=== PATIENT | female | born 1955 | race Caucasian/White ===

== ENCOUNTER 2021-02-10 15:36 | Emergency (ER) | payer MEDICARE, OTHER ==
[~2021-02-10 15:36] MED LIST: CATAPRES 0.1MG0.1 MG PO; COREG 3.125M3.125 MG PO; NORVASC 5 MG TAB5 MG PO
[2021-02-10] MEDS ORDERED: MOBIC15 MG PO (17:34)
== END 2021-02-10 17:44 | disposition home or self-care (01) ==
LOC: ER1 15:36
DX: S76.012A Strain of muscle, fascia and tendon of left hip, initial encounter (principal); I10 Essential (primary) hypertension; E78.00 Pure hypercholesterolemia, unspecified; Z88.5 Allergy status to narcotic agent; Z88.0 Allergy status to penicillin; Z85.828 Personal history of other malignant neoplasm of skin; X50.0XXA Overexertion from strenuous movement or load, initial encounter; Y92.009 Unspecified place in unspecified non-institutional (private) residence as the place of occurrence of the external cause
CPT/HCPCS: 73502; 99283

== ENCOUNTER 2021-02-28 15:01 | Inpatient (IN) | payer MEDICARE, OTHER ==
[~2021-02-28] VITALS: Ht 157.5 cm; Wt 109.8 kg
[~2021-02-28 15:01] MED LIST changes: +MOBIC15 MG PO
[2021-02-28 15:54] LABS: HEMOGLOBIN 13.1 gm/dl (12.3-15.3); RED BLOOD COUNT 4.19 M/UL (4.00-5.10); WHITE BLOOD COUNT 10.1 K/UL (4.5-11.0)
[2021-02-28 16:39] LABS: BUN/CREATININE RATIO 21 (0-10)
[2021-02-28] MEDS ORDERED: FLONASE ALLER15.8 ML (21:24)
[2021-02-28] MEDS ORDERED: VITAMIN D21250 MCG PO (21:25)
[2021-02-28] MEDS ORDERED: MONTELUKAST SOD10 MG PO (21:26)
[2021-02-28] MEDS ORDERED: CRESTOR20 MG PO (21:26)
[2021-02-28] MEDS ORDERED: CLARITIN10 M2 PO (21:27)
[2021-02-28] MEDS ORDERED: ASPIRIN81 MG PO (21:27)
[2021-02-28] MEDS ORDERED: PRESERVISION A1 EAC2 PO (21:29)
[2021-02-28] MEDS ORDERED: TYLENOL325 MG PO (21:30)
[2021-03-01 02:34] LABS: HEMOGLOBIN 11.8 gm/dl (12.3-15.3); RED BLOOD COUNT 3.84 M/UL (4.00-5.10); WHITE BLOOD COUNT 8.9 K/UL (4.5-11.0)
[2021-03-01 03:06] LABS: BUN/CREATININE RATIO 18 (0-10)
[2021-03-02 06:06] LABS: BUN/CREATININE RATIO 22 (0-10)
[2021-03-03 05:36] LABS: HEMOGLOBIN 11.6 gm/dl (12.3-15.3); RED BLOOD COUNT 3.83 M/UL (4.00-5.10); WHITE BLOOD COUNT 8.1 K/UL (4.5-11.0)
[2021-03-03 05:51] LABS: BUN/CREATININE RATIO 19 (0-10)
--- NOTE | 2021-03-03 12:34 | NUR ---
PATIENTS ROOM AIR SATURATION IS 85%.
[2021-03-04 05:05] LABS: BUN/CREATININE RATIO 19 (0-10)
[2021-03-04 06:43] LABS: HEMOGLOBIN 11.7 gm/dl (12.3-15.3); RED BLOOD COUNT 3.93 M/UL (4.00-5.10); WHITE BLOOD COUNT 8.4 K/UL (4.5-11.0)
[2021-03-04] MEDS ORDERED: IPRAT-ALBUT 0.5-3 ML NEB (08:43)
[2021-03-04] MEDS ORDERED: LASIX40 MG PO (08:45)
== END 2021-03-04 15:21 | disposition home or self-care (01) | DRG 314 ==
LOC: ER1 15:01 → PROG CARE 17:13 → CDU 17:13 → PROG CARE 21:35
PROVIDERS: Emergency Medicine; ADMIT Internal Medicine
PROC: 5A0945A Assistance with Respiratory Ventilation, 24-96 Consecutive Hours, High Flow/Velocity Cannula (ICD-10-PCS; 2021-02-28)
PROC: B24BZZZ Ultrasonography of Heart with Aorta (ICD-10-PCS; principal; 2021-03-03)
DX: I27.20 Pulmonary hypertension, unspecified (principal); J96.21 Acute and chronic respiratory failure with hypoxia; Z68.41 Body mass index [BMI] 40.0-44.9, adult; I11.0 Hypertensive heart disease with heart failure; E78.5 Hyperlipidemia, unspecified; E66.01 Morbid (severe) obesity due to excess calories; D69.6 Thrombocytopenia, unspecified; J44.9 Chronic obstructive pulmonary disease, unspecified; Z96.612 Presence of left artificial shoulder joint; E83.39 Other disorders of phosphorus metabolism; Z20.822 Contact with and (suspected) exposure to COVID-19; I50.9 Heart failure, unspecified; D64.9 Anemia, unspecified; I07.1 Rheumatic tricuspid insufficiency; Z88.0 Allergy status to penicillin; Z88.1 Allergy status to other antibiotic agents; Z79.82 Long term (current) use of aspirin; Z79.899 Other long term (current) drug therapy; Z82.49 Family history of ischemic heart disease and other diseases of the circulatory system; Z83.6 Family history of other diseases of the respiratory system; Z87.891 Personal history of nicotine dependence; Z81.8 Family history of other mental and behavioral disorders
CPT/HCPCS: ECHO; 0240U; 36415; 36600; 71045; 80048; 80053; 80202; 81001; 82550; 82553; 82803; 83605; 83690; 83735; 83880; 84484; 85025; 85379; 85610; 85730; 87040; 93005; 93306; 94640; 94664; 94760; 96374; 97161; 97166; 99285; J1650; J3370; J7070; Q9967

== ENCOUNTER → 2021-03-12 | Outpatient (CLI) | payer MEDICARE, OTHER ==
[~2021-03-12] MED LIST changes: +ASPIRIN81 MG PO; +CLARITIN10 M2 PO; +CRESTOR20 MG PO; +FLONASE ALLER15.8 ML; +IPRAT-ALBUT 0.5-3 ML NEB; +LASIX40 MG PO; +MONTELUKAST SOD10 MG PO; +PRESERVISION A1 EAC2 PO; +TYLENOL325 MG PO; +VITAMIN D21250 MCG PO
[2021-03-12 10:51] LABS: HEMOGLOBIN 12.6 gm/dl (12.3-15.3); RED BLOOD COUNT 4.11 M/UL (4.00-5.10); WHITE BLOOD COUNT 6.3 K/UL (4.5-11.0)
[2021-03-12 11:05] LABS: BUN/CREATININE RATIO 19 (0-10)
[2021-03-13 08:14] LABS: VITAMIN D, 25-HYDROXY 50.1 ng/mL (30.0-100.0)
== END ==
LOC: LAB 09:55
PROVIDERS: Family Medicine
DX: E78.5 Hyperlipidemia, unspecified (principal); I10 Essential (primary) hypertension; E55.9 Vitamin D deficiency, unspecified
CPT/HCPCS: 36415; 71046; 80053; 80061; 84439; 84443; 84481; 85027

== ENCOUNTER 2021-06-26 15:26 | Inpatient (IN) | payer MEDICARE, OTHER ==
[~2021-06-26] VITALS: Ht 157.5 cm; Wt 107.7 kg
[2021-06-26 16:09] LABS: HEMOGLOBIN 13.7 gm/dl (12.3-15.3); RED BLOOD COUNT 4.6 M/UL (4.00-5.10); WHITE BLOOD COUNT 7.8 K/UL (4.5-11.0)
[2021-06-26 16:32] LABS: BUN/CREATININE RATIO 18 (0-10)
[2021-06-26] MEDS ORDERED: LASIX20 MG PO (22:38)
[2021-06-26] MEDS ORDERED: CAL-CITRATE PL1 EACH PO (22:39)
[2021-06-26] MEDS ORDERED: PRESERVISION A1 EAC1 PO (22:40)
[2021-06-27 02:55] LABS: HEMOGLOBIN 12.7 gm/dl (12.3-15.3); RED BLOOD COUNT 4.34 M/UL (4.00-5.10); WHITE BLOOD COUNT 6.9 K/UL (4.5-11.0)
[2021-06-27 03:10] LABS: BUN/CREATININE RATIO 16 (0-10)
[2021-06-28 08:15] LABS: BUN/CREATININE RATIO 11 (0-10)
[2021-06-29 07:36] LABS: BUN/CREATININE RATIO 12 (0-10)
[2021-06-30 10:18] LABS: BUN/CREATININE RATIO 19 (0-10)
[2021-07-01] MEDS ORDERED: IPRAT-ALBUT 0.5-3 ML NEB (11:08)
[2021-07-01] MEDS ORDERED: NEBULIZER UNIT INH (11:08)
--- NOTE | 2021-07-01 11:33 | NUR ---
ROOM AIR O2 SAT 78%
== END 2021-07-01 14:32 | disposition home or self-care (01) | DRG 291 ==
LOC: ER1 15:26 → PROG CARE 17:36 → CDU 17:36 → PROG CARE 22:24
PROVIDERS: Physician Assistant; ADMIT Internal Medicine Infectious Disease
PROC: B24BZZ4 Ultrasonography of Heart with Aorta, Transesophageal (ICD-10-PCS; principal; 2021-06-26)
PROC: 5A09557 Assistance with Respiratory Ventilation, Greater than 96 Consecutive Hours, Continuous Positive Airway Pressure (ICD-10-PCS; 2021-06-27)
DX: I11.0 Hypertensive heart disease with heart failure (principal); J96.21 Acute and chronic respiratory failure with hypoxia; Z20.822 Contact with and (suspected) exposure to COVID-19; J96.22 Acute and chronic respiratory failure with hypercapnia; I50.33 Acute on chronic diastolic (congestive) heart failure; E66.2 Morbid (severe) obesity with alveolar hypoventilation; Z68.41 Body mass index [BMI] 40.0-44.9, adult; I27.20 Pulmonary hypertension, unspecified; E78.5 Hyperlipidemia, unspecified; F17.210 Nicotine dependence, cigarettes, uncomplicated; D75.89 Other specified diseases of blood and blood-forming organs; G47.33 Obstructive sleep apnea (adult) (pediatric); J30.2 Other seasonal allergic rhinitis; I08.2 Rheumatic disorders of both aortic and tricuspid valves; Z91.14 Patient's other noncompliance with medication regimen; Z88.5 Allergy status to narcotic agent; Z88.0 Allergy status to penicillin; Z81.8 Family history of other mental and behavioral disorders; Z83.6 Family history of other diseases of the respiratory system; Z82.49 Family history of ischemic heart disease and other diseases of the circulatory system; Z79.01 Long term (current) use of anticoagulants; Z79.82 Long term (current) use of aspirin
CPT/HCPCS: ECHO; 36415; 36600; 71045; 73630; 80048; 80053; 82550; 82553; 82803; 83605; 83735; 83874; 83880; 84484; 85025; 87040; 93005; 93306; 94660; 94760; 96374; 97116; 97161; 99284; J1120; J1650; J1940; J2060; U0002

== ENCOUNTER → 2021-08-04 | Outpatient (CLI) | payer MEDICARE, OTHER ==
[~2021-08-04] MED LIST changes: +CAL-CITRATE PL1 EACH PO; +LASIX20 MG PO; +NEBULIZER UNIT INH; +PRESERVISION A1 EAC1 PO
== END ==
LOC: HEART 5 14:42
DX: R06.02 Shortness of breath (principal)
CPT/HCPCS: 94060; 94729

== ENCOUNTER → 2021-08-06 | Outpatient (CLI) | payer MEDICARE, OTHER | LOC: MAMO 10:25 | DX: Z12.31 Encounter for screening mammogram for malignant neoplasm of breast (principal); R09.02 Hypoxemia | CPT/HCPCS: 36600; 77063; 77067; 82803 ==

== ENCOUNTER → 2021-08-15 | Outpatient (CLI) | payer MEDICARE, OTHER ==
[2021-08-15 10:17] LABS: RED BLOOD COUNT 4.03 M/UL (4.00-5.10); WHITE BLOOD COUNT 7.5 K/UL (4.5-11.0)
[2021-08-15 10:46] LABS: BUN/CREATININE RATIO 17 (0-10)
== END ==
LOC: LAB 09:24
PROVIDERS: Family Medicine
DX: E78.5 Hyperlipidemia, unspecified (principal); I10 Essential (primary) hypertension; E55.9 Vitamin D deficiency, unspecified
CPT/HCPCS: 36415; 80053; 80061; 84439; 84443; 85027

== ENCOUNTER → 2021-10-14 | Outpatient (CLI) | payer MEDICARE, OTHER | LOC: EXRD 10-02 15:00 | DX: M81.0 Age-related osteoporosis without current pathological fracture (principal); M85.852 Other specified disorders of bone density and structure, left thigh; M85.88 Other specified disorders of bone density and structure, other site | CPT/HCPCS: 77080 ==

== ENCOUNTER → 2021-10-28 | Outpatient (CLI) | payer MEDICARE, OTHER ==
[2021-10-28 08:42] LABS: HEMOGLOBIN 12.7 gm/dl (12.3-15.3); RED BLOOD COUNT 4.07 M/UL (4.00-5.10); WHITE BLOOD COUNT 6.3 K/UL (4.5-11.0)
[2021-10-28 08:54] LABS: BUN/CREATININE RATIO 21 (0-10)
== END ==
LOC: OPSV2 07:30
PROVIDERS: Orthopaedic Surgery
DX: Z01.818 Encounter for other preprocedural examination (principal); G56.01 Carpal tunnel syndrome, right upper limb; I44.4 Left anterior fascicular block; R94.31 Abnormal electrocardiogram [ECG] [EKG]
CPT/HCPCS: 36415; 80048; 85025; 93005

== ENCOUNTER → 2021-11-05 | Day surgery (SDC) | payer MEDICARE, OTHER ==
[~2021-11-05] MED LIST changes: +FOLIC ACID 1 MG1 MG PO; +INTRINSI B12-F1 EACH PO; +SYMBICORT 160-1 INHA INH; +ULTRAM50 MG PO
== END | disposition home or self-care (01) ==
LOC: OR 10-20 10:30
DX: G56.01 Carpal tunnel syndrome, right upper limb (principal); E78.5 Hyperlipidemia, unspecified; I11.0 Hypertensive heart disease with heart failure; I50.9 Heart failure, unspecified; J44.9 Chronic obstructive pulmonary disease, unspecified; K76.0 Fatty (change of) liver, not elsewhere classified; Z56.0 Unemployment, unspecified; Z98.51 Tubal ligation status; Z88.0 Allergy status to penicillin; Z88.5 Allergy status to narcotic agent; Z79.82 Long term (current) use of aspirin; Z20.822 Contact with and (suspected) exposure to COVID-19; Z87.891 Personal history of nicotine dependence; Z96.612 Presence of left artificial shoulder joint
CPT/HCPCS: J0690; J1100; J2001; J2405; J2704; J3010; J7030; J7120

== ENCOUNTER → 2022-01-13 | Outpatient (CLI) | payer MEDICARE, OTHER | LOC: KOH-I 13:23 | DX: R59.0 Localized enlarged lymph nodes (principal) | CPT/HCPCS: 71250 ==

== ENCOUNTER → 2022-02-03 | Outpatient (CLI) | payer MEDICARE, OTHER | LOC: EXRD 13:05 | DX: J20.9 Acute bronchitis, unspecified (principal); I51.7 Cardiomegaly | CPT/HCPCS: 71046 ==

== ENCOUNTER → 2022-03-06 | Day surgery (SDC) | payer MEDICARE, OTHER ==
[~2022-03-06] MED LIST changes: +AMLODIPINE BESYL5 MG PO; +ARTHRITIS PAIN150 GM TP; +IPRAT-ALBUT 0.5-3 ML INH; +LEVOCETIRIZINE D5 MG PO; +NITROSTAT0.4 MG SL; +NORVASC 5 MG PO; -NORVASC 5 MG TAB5 MG PO; +PROVENTIL HFA6.7 GM INH
== END | disposition home or self-care (01) ==
LOC: OR 05:17
DX: D12.5 Benign neoplasm of sigmoid colon (principal); K62.1 Rectal polyp; K57.30 Diverticulosis of large intestine without perforation or abscess without bleeding; I11.0 Hypertensive heart disease with heart failure; I50.30 Unspecified diastolic (congestive) heart failure; I25.10 Atherosclerotic heart disease of native coronary artery without angina pectoris; E78.5 Hyperlipidemia, unspecified; J44.9 Chronic obstructive pulmonary disease, unspecified; M19.90 Unspecified osteoarthritis, unspecified site; Z99.81 Dependence on supplemental oxygen; Z88.0 Allergy status to penicillin; Z88.5 Allergy status to narcotic agent; Z88.8 Allergy status to other drugs, medicaments and biological substances; Z79.82 Long term (current) use of aspirin; Z79.899 Other long term (current) drug therapy; Z87.891 Personal history of nicotine dependence; Z72.89 Other problems related to lifestyle
CPT/HCPCS: J2704